=== PATIENT | female | born 1985 | race Caucasian/White ===

== ENCOUNTER 2016-09-03 15:50 | Emergency (ER) | payer OTHER ==
[2016-09-03] MEDS ORDERED: LETS SOLN TOPICAL 1 EA SYR TP ONE ×2 (16:14→17:00)
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
[2016-09-03] MEDS ORDERED: LIDOCAINE 2% JELLY 20 ML (UROJECT) ONE (18:07)
[2016-09-03] MEDS ORDERED: SKIN ADHESIVE (DERMABOND) 1 EACH TP ONE ×2 (18:53→19:07)
[2016-09-03] MEDS ORDERED: PROPARACAINE 0.5% 15 ML OPHT DROP ONE (19:00)
[2016-09-03] MEDS ORDERED: PROPARACAINE 0.5% 15 ML OPHT DROP RTEYE ONE (19:09)
[2016-09-03] MEDS ORDERED: FLUORESCEIN SODIUM 1 MG STRIP OP ONE ×2 (19:31→19:40)
[2016-09-03 20:48] VITALS: BP 119/77; PULSE 88; RESP 18; TEMP 98.1; O2SAT 99
== END 2016-09-03 21:00 | disposition home or self-care (01) ==
PROC: 08QRXZZ Repair Left Lower Eyelid, External Approach (ICD-10-PCS; principal; 2016-09-03)
DX: S05.32XA Ocular laceration without prolapse or loss of intraocular tissue, left eye, initial encounter (principal); H10.9 Unspecified conjunctivitis; S20.112A Abrasion of breast, left breast, initial encounter; S30.810A Abrasion of lower back and pelvis, initial encounter; S60.311A Abrasion of right thumb, initial encounter; S80.211A Abrasion, right knee, initial encounter; S30.811A Abrasion of abdominal wall, initial encounter; V00.111A Fall from in-line roller-skates, initial encounter; Y92.410 Unspecified street and highway as the place of occurrence of the external cause; Y99.8 Other external cause status; Y93.51 Activity, roller skating (inline) and skateboarding

== ENCOUNTER 2018-08-11 01:19 | Emergency (ER) | payer OTHER ==
[2018-08-11 02:20] LABS: PLATELET COUNT 451 10^3/uL (150-400)
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
[2018-08-11 08:15] VITALS: BP 135/78
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
--- NOTE | 2018-08-11 15:13 | ASMTTCLDSP ---
TLC Discharge Disposition Disposition: Answers: Discharge If Answers: Yes DISCHARGED: Patient/family given suicide hotline info & [facility] brochure? Disposition Notes: Notes: Pt agreed to contact her psychiatrist as soon as possible. She will agree to see him if he recommends that. Pt will stay at her sister's home while she repairs her relationship with her bf. Pt and clinician had a discussion about her alcohol use and it's effect on her ability to make safe decisions. Pt agreed to continue to think about this and to try to decrease use. Pt was given [facility] address and phone number. Discharge Concerns/Recommendations: Notes: In consultation with [facility] ED physician, Dr Sampson it was concurred that Pt does not appear to meet 27-65 criteria requiring psychiatric hospitalization as Pt does not appear to be an imminent risk of harm to self due to a mental illness condition. Pt was read the Patient Rights and Responsibilities Statement on at 7:00AM original placed in chart and copy given to pt. Dr Sampson lifted the M1 hold on 08/11/2018 at 7:56 Psychiatrist vacating ED physician, Dr Sampson Hold: Date and time M1 hold 08/11/2018 07:56 AM vacated (time format is hh:mm): Type of Hold: Answers: M1/72-hour Hold Hold initiated by: Answers: Police Date Signed: 08/11/2018 03:12 PM Electronically Signed By:Mary Leigh
== END 2018-08-11 08:15 | disposition home or self-care (01) ==
DX: F10.920 Alcohol use, unspecified with intoxication, uncomplicated (principal); S61.512A Laceration without foreign body of left wrist, initial encounter; X78.1XXA Intentional self-harm by knife, initial encounter; Y92.9 Unspecified place or not applicable; Y99.9 Unspecified external cause status; Y93.9 Activity, unspecified
CPT/HCPCS: 80305; G0480